=== PATIENT | male | born 1985 | race Caucasian/White ===

== ENCOUNTER 2017-01-24 09:57 | Day surgery (SDC) | payer BC ==
[~2017-01-24 09:57] MED LIST: NO HOME MEDICATION XX
[2017-01-24] MEDS ORDERED: AUGMENTIN 875-1 EAC2 PO (10:24)
== END 2017-01-24 16:26 ==
LOC: SRG 09:57 → SHSB 10:01 → ORW 11:42 → CAR1 14:43
PROC: 0JB90ZZ Excision of Buttock Subcutaneous Tissue and Fascia, Open Approach (ICD-10-PCS; principal; 2017-01-24)
DX: L05.01 Pilonidal cyst with abscess (principal); Z79.2 Long term (current) use of antibiotics; Z88.2 Allergy status to sulfonamides; Z98.890 Other specified postprocedural states
CPT/HCPCS: J0690